=== PATIENT | male | born 1975 | race Caucasian/White ===

== ENCOUNTER 2017-10-09 15:34 | Inpatient (IN) | payer OTHER ==
[2017-10-09 17:25] VITALS: BMI 28.8
--- NOTE | 2017-10-09 18:34 | HP ---
COWS - Scale Resting Pulse: 0= [place] 80 or Below Sweatin= Chills/Flushing Restless Observation: 3= Extraneous Movement Pupil Size: 0= Normal to Room Light Bone or Joint Aches: 2= Severe Diffuse Aches Runny Nose/ Eye Tearin= Runny Nose/Eyes GI Upset > 30mins: 2= Nausea/Diarrhea Tremor Observation: 2= Slight Tremor Visible Yawning Observation: 1= 1-2x During Session Anxiety or Irritability: 2=Irritable/Anxious Goose Flesh Skin: 3=Piloerection COWS Score: 18 Admission ROS S - HPI Chief Complaint: WITHDRAWAL SX Allergies/Adverse Reactions: Allergies Allergy/AdvReac Type Severity Reaction Status Date / Time No Known Allergies Allergy Verified 10/09/17 18:35 History of Present Illness: 41 YEARS OLD MALE WITH LONG HISTORY OF HEROIN NICOTINE DEPENDENCE HAS CHF COPD AND BIPOLAR II IS ADMITTED TO DETOX Exam Limitations: No Limitations - Ebola screening Have you traveled outside of the country in the last 21 days: No Have you had contact with anyone from an Ebola affected area: No Have you been sick,other than usual withdrawal symptoms: No Do you have a fever: No - Review of Systems Constitutional: Changes in sleep, Weight Stable EENT: reports: No Symptoms Reported Respiratory: reports: Cough, SOB with Exertion Cardiac: reports: No Symptoms Reported GI: reports: Diarrhea, Nausea, Poor Fluid Intake, Abdominal cramping : reports: No Symptoms Reported Musculoskeletal: reports: Back Pain, Joint Pain, Muscle Pain, Neck Pain Integumentary: reports: No Symptoms Reported Neuro: reports: Tremors Endocrine: reports: No Symptoms Reported Hematology: reports: No Symptoms Reported Psychiatric: reports: Judgement Intact, Orientated x3, Anxious, Depressed Other Systems: Reviewed and Negative Patient History - Patient Medical History Hx Anemia: No Hx Asthma: Yes Hx Chronic Obstructive Pulmonary Disease (COPD): Yes Hx Cancer: No Hx Cardiac Disorders: No Hx Congestive Heart Failure: No Hx Hypertension: No Hx Hypercholesterolemia: No Hx Pacemaker: No HX Cerebrovascular Accident: No Hx Seizures: No Hx Dementia: No Hx Diabetes: No Hx Gastrointestinal Disorders: No Hx Liver Disease: No Hx Genitourinary Disorders: No Hx Sexually Transmitted Disorders: No Hx Renal Disease (ESRD): No Hx Thyroid Disease: No Hx Human Immunodeficiency Virus (HIV): No Hx Hepatitis C: Yes Hx Depression: No Hx Suicide Attempt: Yes (WHEN SON "YERAS" AGO) Hx Bipolar Disorder: Yes Hx Schizophrenia: No - Patient Surgical History Past Surgical History: Yes Hx Cataract Extraction: Yes (RIGHT EYE05/2017) Anesthesia Reaction: No - PPD History Previous Implant?: Yes Documented Results: Negative w/o proof Implanted On Prior [facility] Admission?: No PPD to be Administered?: Yes - Smoking Cessation Smoking history: Current every day smoker Have you smoked in the past 12 months: Yes Aproximately how many cigarettes per day: 20 Cigars Per Day: 0 Hx Chewing Tobacco Use: No Initiated information on smoking cessation: Yes 'Breaking Loose' booklet given: 10/09/17 - Substance & Tx. History Hx Alcohol Use: No Substance Use Type: Cocaine, Heroin, Opiates Hx Substance Use Treatment: Yes (2013) - Substances Abused Heroin Route: Inhalation Frequency: Daily Amount used: 4 BAGS Age of first use: 18 Date of Last Use: 10/08/17 Cocaine Route: Inhalation Frequency: Daily Amount used: 40$ Age of first use: 19 Date of Last Use: 10/08/17 Family Disease History - Family Disease History Family Disease History: Respiratory: Mother (), Other: Father (/ KILLED), Mother Admission Physical Exam S - Vital Signs Vital Signs: Vital Signs - 24 hr 10/09/17 17:21 Temperature 97.6 F Pulse Rate 59 L Respiratory 18 Rate Blood Pressure 109/70 - Physical General Appearance: Yes: Appropriately Dressed, Moderate Distress, Tremorous, Irritable, Sweating, Anxious HEENTM: Yes: Hearing grossly Normal, Normal ENT Inspection, Normocephalic, Normal Voice Respiratory: Yes: Chest Non-Tender, No Respiratory Distress, No Accessory Muscle Use, Rhonchi, Hyperresonant Neck: Yes: Supple, Trachea in good position Breast: Yes: Breasts Symetrical Cardiology: Yes: Regular Rhythm, S1, S2, Bradycardia Abdominal: Yes: Non Tender, Soft, Increased Bowel Sounds Genitourinary: Yes: Within Normal Limits Back: Yes: Normal Inspection Musculoskeletal: Yes: full range of Motion, Gait Steady, Back pain, Muscle Pain Extremities: Yes: Normal Inspection, Normal Range of Motion, Non-Tender, Tremors Neurological: Yes: Fully Oriented, Alert, Motor Strength 5/5, Normal Response, Depressed Affect Integumentary: Yes: Warm Lymphatic: Yes: Within Normal Limits - Diagnostic (1) Opioid dependence with withdrawal Current Visit: Yes Status: Acute (2) Cocaine dependence, uncomplicated Current Visit: Yes Status: Chronic (3) Nicotine dependence Current Visit: Yes Status: Acute Qualifiers: Nicotine product type: cigarettes Substance use status: in withdrawal Qualified Code(s): F17.213 - Nicotine dependence, cigarettes, with withdrawal (4) Glaucoma (increased eye pressure) Current Visit: Yes Status: Chronic Qualifiers: Glaucoma type: with increased episcleral venous pressure Laterality: bilateral Qualified Code(s): H40.813 - Glaucoma with increased episcleral venous pressure, bilateral (5) Cataract (lens) fragments in eye following cataract surgery Current Visit: Yes Status: Chronic Comment: RIGHT EYE (6) Bipolar II disorder Current Visit: Yes Status: Suspected (7) Pulmonary edema Current Visit: Yes Status: Ruled-out Qualifiers: Chronicity: chronic Qualified Code(s): J81.1 - Chronic pulmonary edema Cleared for Admission S - Detox or Rehab [facility] Level of Care: Medically Managed Detox Regimen/Protocol: Methadone [facility] Breath Alcohol Content Breath Alcohol Content: 0 Urine Drug Screen - Results Drug Screen Negative: No Urine Drug Screen Results: IAN-Cocaine, OPI-Opiates, MTD-Methadone, OXY- Oxycodone
[2017-10-09] MEDS ORDERED: P-EPHED 60MG/TRIPROLIDI 2.5MG TABLET PO PRN (18:57)
[2017-10-09] MEDS ORDERED: LOPERAMIDE HCL 2 MG CAPSULE PO PRN (18:57)
[2017-10-09] MEDS ORDERED: IBUPROFEN 400 MG TABLET (FP) PO PRN (18:57)
[2017-10-09] MEDS ORDERED: MENTHOL/PHENOL 1 EACH UD MM PRN (18:57)
[2017-10-09] MEDS ORDERED: MAG HYDROX/AL HYDROX/SIMETH 30 ML UNIT-DOSE CUP PO PRN (18:57)
[2017-10-09] MEDS ORDERED: MAGNESIUM HYDROX 2400MG/30ML ORAL SUSPENSION 30 ML CUP PO PRN (18:57)
[2017-10-09] MEDS ORDERED: MAGNESIUM CITRATE 300 ML BOTTLE PO PRN (18:57)
[2017-10-09] MEDS ORDERED: guaiFENesin/D-METHORPHAN HB 10 ML UNIT-DOSE CUPS PO PRN (18:57)
[2017-10-09] MEDS ORDERED: NICOTINE POLACRILEX 4 MG GUM BC PRN (18:57)
[2017-10-09] MEDS ORDERED: METHADONE HCL 10 MG TABLET (FOR DETOX USE ONLY) PO ONE ×2 (18:57→23:00)
[2017-10-09] MEDS ORDERED: ACETAMINOPHEN 325 MG TABLET (FP) PO PRN (18:57)
[2017-10-09] MEDS ORDERED: ALBUTEROL SO4 18 GM HFA INHALER IH PRN (19:07)
[2017-10-09] MEDS ORDERED: ALBUTEROL SO4 0.083% IH SOL 2.5 MG/3 ML VIAL.NEB. NEB PRN (19:14)
[2017-10-09] MEDS ORDERED: PATIENT'S OWN MEDICATION (NON-FORMULARY) (Dorzolamide Hcl/Timolol Maleat [Cosopt Eye Drops OP SCH (22:00)
[2017-10-09] MEDS: diazePAM 5 MG TABLET PO PRN (22:50)
[2017-10-09] MEDS: THIAMINE HCL 100 MG TABLET (FP) PO SCH (22:50)
[2017-10-09] MEDS: TIMOLOL 0.5% OPHTHALMIC SOL 5 ML BOTTLE OU SCH (22:52)
[2017-10-09] MEDS: prednisoLONE ACETATE 1% OPHTH SUSP 5 ML BOTTLE OU SCH (22:52)
[2017-10-09] MEDS: DORZOLAMIDE 2% HCL OPHTHALMIC SOLUTION 10 ML BOTTLE OU SCH (22:53)
[2017-10-10 00:21] LABS: URINE APPEARANCE CLEAR; URINE BILIRUBIN NEGATIVE (NEGATIVE); URINE BLOOD NEGATIVE (NEGATIVE); URINE COLOR YELLOW; URINE GLUCOSE (UA) NEGATIVE (NEGATIVE); URINE KETONE NEGATIVE (NEGATIVE); URINE LEUK ESTERASE NEGATIVE (NEGATIVE); URINE NITRITE NEGATIVE (NEGATIVE); URINE PROTEIN NEGATIVE (NEGATIVE)
--- NOTE | 2017-10-10 07:50 | CONSULT ---
[facility] Psychiatric Consult - Data Date of interview: 10/10/17 Admission source: [facility] Identifying data: This is 41 years old male with no psychiatric hospiotalization history intoxicated with: Cocaien, Heroin and Nicotine Substance Abuse History: - Smoking Cessation. Smoking history: Current every day smoker. Have you smoked in the past 12 months: Yes. Aproximately how many cigarettes per day: 20. Cigars Per Day: 0. Hx Chewing Tobacco Use: No. Initiated information on smoking cessation: Yes. 'Breaking Loose' booklet given : 10/09/17. - Substance & Tx. History. Hx Alcohol Use: No. Substance Use Type : Cocaine, Heroin, Opiates. Hx Substance Use Treatment: Yes (2013). - Substances Abused. Heroin. Route: Inhalation. Frequency: Daily. Amount used: 4 BAGS. Age of first use: 18. Date of Last Use: 10/08/17. Cocaine. Route: Inhalation. Frequency: Daily. Amount used: 40$. Age of first use: 19. Date of Last Use: 10/08/17 Medical History: Gkaucoma history, Cataract history, Pulmonary edema histotry Psychiatric History: Patient reprots history of Bipola II Disorder, reports no psychiatrioc hospitalizatiom history, no medications taking prior to admission Physical/Sexual Abuse/Trauma History: Denies Additional Comment: Observation. Detox Unit Care Protocol Mental Status Exam - Mental Status Exam Alert and Oriented to: Person Cognitive Function: Fair Patient Appearance: Unkempt Mood: Sad Affect: Flat Patient Behavior: Sedated Speech Pattern: Appropriate, Delayed Voice Loudness: Mildly Soft/Quiet Thought Process: Circumstantial Thought Disorder: Being Controlled Hallucinations: Denies Suicidal Ideation: Denies Homicidal Ideation: Denies Insight/Judgement: Fair Sleep: Difficulty falling asleep Appetite: Weight loss Muscle strength/Tone: Mild Hypotonicity Gait/Station: Shuffling Additional Comments: Observation. Detox Unit Care Protocol Psychiatric Findings - Problem List ([place] 1, 2,3) (1) Drug-induced mood disorder Current Visit: Yes Status: Acute (2) Nicotine dependence Current Visit: Yes Status: Acute Qualifiers: Nicotine product type: cigarettes Substance use status: in withdrawal Qualified Code(s): F17.213 - Nicotine dependence, cigarettes, with withdrawal (3) Opioid dependence with withdrawal Current Visit: Yes Status: Acute (4) Cocaine dependence, uncomplicated Current Visit: Yes Status: Chronic (5) Bipolar II disorder Current Visit: Yes Status: Suspected - Initial Treatment Plan Initial Treatment Plan: Observation. Detox Unit Care Protocol
--- NOTE | 2017-10-10 09:13 | EKG ---
Test Reason : Blood Pressure : / mmHG Vent. Rate : 058 BPM Atrial Rate : 058 BPM P-R Int : 152 ms QRS Dur : 112 ms QT Int : 408 ms P-R-T Axes : 044 071 044 degrees QTc Int : 400 ms SINUS BRADYCARDIA OTHERWISE NORMAL ECG NO PREVIOUS ECGS AVAILABLE Confirmed by MARY GUSTAFSON, CEDRICK ([id number]) on 10/10/2017 9:13:00 AM Referred By: Confirmed By:CEDRICK HERNANDEZ MD
[2017-10-10 10:00] LABS: HEMATOCRIT 39.9 % (35.4-49); MCH 29.8 pg (25.7-33.7); MCHC 32.7 g/dl (32.0-35.9); MEAN CELL VOLUME 91.1 fl (80-96); MEAN PLT VOLUME 8.1 fl (7.5-11.1); PLATELET COUNT 186 K/MM3 (134-434); RBC 4.38 M/mm3 (4.00-5.60); RDW 14.4 % (11.9-15.9); WHITE BLOOD COUNT 6.3 K/mm3 (4.0-10.0)
[2017-10-10] MEDS ORDERED: METHADONE HCL 10 MG TABLET (FOR DETOX USE ONLY) PO ONE (10:00)
[2017-10-10 10:09] LABS: CHLORIDE 106 mmol/L (98-107); POTASSIUM 3.6 mmol/L (3.5-5.1); SODIUM 140 mmol/L (136-145)
[2017-10-10] MEDS: PRENATAL VITAMINS W/ FOLIC ACID TABLET (FP) PO SCH (10:17)
[2017-10-10] MEDS: diazePAM 5 MG TABLET PO PRN ×3 (10:17→22:43)
[2017-10-10] MEDS: NICOTINE 21 MG/24 HOURS TOPICAL PATCH TD SCH (10:18)
[2017-10-10] MEDS: TIMOLOL 0.5% OPHTHALMIC SOL 5 ML BOTTLE OU SCH ×2 (10:20→22:44)
[2017-10-10] MEDS: prednisoLONE ACETATE 1% OPHTH SUSP 5 ML BOTTLE OU SCH ×4 (10:20→22:45)
[2017-10-10] MEDS: DORZOLAMIDE 2% HCL OPHTHALMIC SOLUTION 10 ML BOTTLE OU SCH ×2 (10:20→22:44)
[2017-10-10 10:40] LABS: ALBUMIN 3.4 g/dl (3.4-5.0); ALK PHOS 57 U/L (45-117); ANION GAP 5 (8-16); BILIRUBIN,TOTAL 0.4 mg/dL (0.2-1.0); BLOOD UREA NITROGEN 13 mg/dL (7-18); CALCIUM 8.2 mg/dL (8.5-10.1); CO2 29 mmol/L (21-32); CREATININE 0.7 mg/dL (0.7-1.3); GLUCOSE,RANDOM 98 mg/dL (74-106); SGOT/AST 14 U/L (15-37); SGPT/ALT 22 U/L (12-78); TOT PROT 6.4 g/dl (6.4-8.2)
--- NOTE | 2017-10-10 11:27 | PN ---
S COWS - Scale Resting Pulse: 0= [place] 80 or Below Sweatin=Flushed/Facial Moisture Restless Observation: 1= Difficult to Sit Still Pupil Size: 0= Normal to Room Light Bone or Joint Aches: 2= Severe Diffuse Aches Runny Nose/ Eye Tearin= Runny Nose/Eyes GI Upset > 30mins: 2= Nausea/Diarrhea Tremor Observation of Outstretched Hands: 2= Slight Tremor Visible Yawning Observation: 2= >3x During Session Anxiety or Irritability: 2=Irritable/Anxious Goose Flesh Skin: 3=Piloerection COWS Score: 18 BHS Progress Note (SOAP) Subjective: shakes sweats agitation body aches irritable interrupted sleep tired Objective: 10/10/17 11:34 Vital Signs Temperature 98.2 F 10/10/17 10:11 Pulse Rate 59 L 10/10/17 10:11 Respiratory Rate 18 10/10/17 10:11 Blood Pressure 96/70 10/10/17 10:11 O2 Sat by Pulse Oximetry (%) Laboratory Tests 10/09/17 10/10/17 10/10/17 20:42 07:00 07:00 WBC 6.3 RBC 4.38 Hgb 13.0 Hct 39.9 MCV 91.1 MCH 29.8 MCHC 32.7 RDW 14.4 Plt Count 186 MPV 8.1 Sodium 140 Potassium 3.6 Chloride 106 Carbon Dioxide 29 Anion Gap 5 L BUN 13 Creatinine 0.7 Creat Clearance w eGFR > 60 Random Glucose 98 Calcium 8.2 L Total Bilirubin 0.4 AST 14 L ALT 22 Alkaline Phosphatase 57 Total Protein 6.4 Albumin 3.4 Urine Color Yellow Urine Appearance Clear Urine pH 6.0 Ur Specific [place] 1.028 Urine Protein Negative Urine Glucose (UA) Negative Urine Ketones Negative Urine Blood Negative Urine Nitrite Negative Urine Bilirubin Negative Urine Urobilinogen 2.0 Ur Leukocyte Esterase Negative aaox3 ambulating no acute distress Assessment: 10/10/17 11:35 withdrawal sx Plan: continue detox increase fluids
[2017-10-10] MEDS: THIAMINE HCL 100 MG TABLET (FP) PO SCH (22:43)
[2017-10-11] MEDS ORDERED: METHADONE HCL 5 MG TABLET (FOR DETOX USE ONLY) PO ONE (10:00)
[2017-10-11] MEDS: TIMOLOL 0.5% OPHTHALMIC SOL 5 ML BOTTLE OU SCH ×2 (10:04→22:23)
[2017-10-11] MEDS: PRENATAL VITAMINS W/ FOLIC ACID TABLET (FP) PO SCH (10:04)
[2017-10-11] MEDS: NICOTINE 21 MG/24 HOURS TOPICAL PATCH TD SCH (10:05)
[2017-10-11] MEDS: DORZOLAMIDE 2% HCL OPHTHALMIC SOLUTION 10 ML BOTTLE OU SCH ×2 (10:06→22:23)
[2017-10-11] MEDS: prednisoLONE ACETATE 1% OPHTH SUSP 5 ML BOTTLE OU SCH ×4 (10:06→22:23)
--- NOTE | 2017-10-11 12:46 | PN ---
[facility] COWS - Scale Resting Pulse: 0= [place] 80 or Below Sweatin=Flushed/Facial Moisture Restless Observation: 1= Difficult to Sit Still Pupil Size: 0= Normal to Room Light Bone or Joint Aches: 2= Severe Diffuse Aches Runny Nose/ Eye Tearin= Nasal Congestion GI Upset > 30mins: 1= Stomach Cramp Tremor Observation of Outstretched Hands: 2= Slight Tremor Visible Yawning Observation: 2= >3x During Session Anxiety or Irritability: 2=Irritable/Anxious Goose Flesh Skin: 0=Smooth Skin COWS Score: 13 BHS Progress Note (SOAP) Subjective: interrupted sleep needs to see psych agitation anxiety sweats shakes Objective: 10/11/17 12:45 Vital Signs Temperature 98.0 F 10/11/17 10:38 Pulse Rate 71 10/11/17 10:38 Respiratory Rate 18 10/11/17 10:38 Blood Pressure 131/50 10/11/17 10:38 O2 Sat by Pulse Oximetry (%) Laboratory Tests 10/09/17 10/10/17 10/10/17 20:42 06:00 07:00 WBC 6.3 RBC 4.38 Hgb 13.0 Hct 39.9 MCV 91.1 MCH 29.8 MCHC 32.7 RDW 14.4 Plt Count 186 MPV 8.1 Sodium Potassium Chloride Carbon Dioxide Anion Gap BUN Creatinine Creat Clearance w eGFR Random Glucose Calcium Total Bilirubin AST ALT Alkaline Phosphatase Total Protein Albumin Urine Color Yellow Urine Appearance Clear Urine pH 6.0 Ur Specific [place] 1.028 Urine Protein Negative Urine Glucose (UA) Negative Urine Ketones Negative Urine Blood Negative Urine Nitrite Negative Urine Bilirubin Negative Urine Urobilinogen 2.0 Ur Leukocyte Esterase Negative RPR Titer HIV 1&2 Antibody Screen Negative HIV P24 Antigen Negative 10/10/17 10/10/17 07:00 07:00 WBC RBC Hgb Hct MCV MCH MCHC RDW Plt Count MPV Sodium 140 Potassium 3.6 Chloride 106 Carbon Dioxide 29 Anion Gap 5 L BUN 13 Creatinine 0.7 Creat Clearance w eGFR > 60 Random Glucose 98 Calcium 8.2 L Total Bilirubin 0.4 AST 14 L ALT 22 Alkaline Phosphatase 57 Total Protein 6.4 Albumin 3.4 Urine Color Urine Appearance Urine pH Ur Specific [place] Urine Protein Urine Glucose (UA) Urine Ketones Urine Blood Urine Nitrite Urine Bilirubin Urine Urobilinogen Ur Leukocyte Esterase RPR Titer Nonreactive HIV 1&2 Antibody Screen HIV P24 Antigen aaox3 ambulating no acute distress Assessment: 10/11/17 12:45 withdrawal sx Plan: continue detox increase fluids psych ordered for insomnia
--- NOTE | 2017-10-11 14:41 | PN ---
Psychiatric Progress Note Vital Signs: Vital Signs Period Temp Pulse Resp BP Sys/Desai Pulse Ox Last 24 Hr 98.0 F-98.6 F 45-130 18-18 98-131/50-82 Date of Session: 10/27/17 Chief Complaint:: "I'm having trouble sleeping." HPI: Pt. is a 41 year old patient with a h/o cocaine and heroin dependence. ROS: Unremarkable. Current Medications: Active Medications Generic Name Dose Route Start Last Admin Trade Name Freq PRN Reason Stop Dose Admin Acetaminophen 650 mg 10/09/17 18:57 Tylenol - PO Q4H PRN FEVER Al Hydroxide/Mg Hydroxide 30 ml 10/09/17 18:57 Mylanta Oral Suspension - PO Q6H PRN DYSPEPSIA Albuterol Sulfate 2 puff 10/09/17 19:07 Ventolin Hfa Inhaler - IH Q4H PRN ASTHMA Albuterol Sulfate 1 amp 10/09/17 19:14 Ventolin 0.083% Nebulizer Soln - NEB Q6H PRN SHORT OF BREATH/WHEEZING Diazepam 10 mg 10/09/17 18:57 10/10/17 22:43 Valium - PO 10/12/17 18:56 10 mg Q4H PRN Administration WITHDRAWAL(CONT SUBST) Dorzolamide HCl 1 drop 10/09/17 22:00 10/11/17 10:06 Trusopt 2% OU 1 drop BID REJI Administration Eucalyptus/Menthol/Phenol/Sorbitol 1 each 10/09/17 18:57 Cepastat Lozenge - MM Q4H PRN SORE THROAT Guaifenesin 10 ml 10/09/17 18:57 Robitussin Dm - PO Q6H PRN COUGH Ibuprofen 400 mg 10/09/17 18:57 Motrin - PO Q6H PRN PAIN LEVEL 4-6 Loperamide HCl 4 mg 10/09/17 18:57 Imodium - PO Q6H PRN DIARRHEA Magnesium Citrate 300 ml 10/09/17 18:57 Citroma - PO Q48H PRN CONSTIPATION Magnesium Hydroxide 30 ml 10/09/17 18:57 Milk Of Magnesia - PO DAILY PRN CONSTIPATION Methadone HCl 5 mg 10/14/17 06:00 Dolophine - PO 10/14/17 06:01 ONCE@0600 ONE Methadone HCl 15 mg 10/12/17 10:00 Dolophine - PO 10/12/17 10:01 ONCE ONE Methadone HCl 10 mg 10/13/17 10:00 Dolophine - PO 10/13/17 10:01 ONCE ONE Nicotine 21 mg 10/10/17 10:00 10/11/17 10:05 Nicoderm Patch - TD Not Given DAILY REJI Nicotine Polacrilex 4 mg 10/09/17 18:57 Nicorette Gum - BC Q2H PRN NICOTINE REPLACEMENT RX Prednisolone Acetate 1 drop 10/09/17 22:00 10/11/17 13:54 Pred Forte 1% - OU 1 drop QID REJI Administration Multivit/Folic Acid/Iron 1 tab 10/10/17 10:00 10/11/17 10:04 Vitamins ([facility]) - PO 1 tab DAILY REJI Administration Pseudoephedrine/Triprolidine 1 combo 10/09/17 18:57 Actifed - PO TID PRN NASAL CONGESTION Thiamine HCl 100 mg 10/09/17 22:00 10/10/17 22:43 Vitamin B1 - PO 100 mg HS REJI Administration Timolol Maleate 1 drop 10/09/17 22:00 10/11/17 10:04 Timoptic 0.5% OU 1 drop BID REJI Administration Medication(s) Change(s): Yes. Will add seroquel 50mg for insomnia. Current Side Effect: No Lab tests ordered: No Lab tests reviewed: Yes Provider note:: Pt. approached patient in reference to his request for the psychiatric reconsultation. Pt. requesting a sleep aid during his stay at [facility]. Pt. reports taking trazodone and seroquel in the past. Pharmacy claims reviewed. Pt. agreeable to taking seroquel 50mg qhs for insomnia. Benefits and side effects discussed. Will continue to monitor patient. Total face to face time:: 25 Mental Status Exam - Mental Status Exam Alert and Oriented to: Time, Place, Person Cognitive Function: Good Patient Appearance: Unkempt Mood: Withdrawn Affect: Normal Range Patient Behavior: Cooperative Speech Pattern: Appropriate Voice Loudness: Normal Thought Process: Goal Oriented Thought Disorder: Not Present Hallucinations: Denies Suicidal Ideation: Denies Homicidal Ideation: Denies Insight/Judgement: Poor Sleep: Poorly Appetite: Fair Muscle strength/Tone: Normal Gait/Station: Normal Psychiatric Treatment Plan - Problem List (1) Cocaine dependence, uncomplicated Current Visit: Yes (2) Drug-induced mood disorder Current Visit: Yes (3) Nicotine dependence Current Visit: Yes Qualifiers: Nicotine product type: cigarettes Substance use status: uncomplicated Qualified Code(s): F17.210 - Nicotine dependence, cigarettes, uncomplicated (4) Opioid dependence with withdrawal Current Visit: Yes (5) Bipolar II disorder Current Visit: Yes
[2017-10-11] MEDS: THIAMINE HCL 100 MG TABLET (FP) PO SCH (22:23)
[2017-10-11] MEDS: diazePAM 5 MG TABLET PO PRN (22:25)
[2017-10-12] MEDS ORDERED: METHADONE HCL 5 MG TABLET (FOR DETOX USE ONLY) PO ONE (10:00)
[2017-10-12] MEDS: DORZOLAMIDE 2% HCL OPHTHALMIC SOLUTION 10 ML BOTTLE OU SCH ×2 (10:16→22:19)
[2017-10-12] MEDS: prednisoLONE ACETATE 1% OPHTH SUSP 5 ML BOTTLE OU SCH ×4 (10:16→22:20)
[2017-10-12] MEDS: PRENATAL VITAMINS W/ FOLIC ACID TABLET (FP) PO SCH (10:17)
[2017-10-12] MEDS: NICOTINE 21 MG/24 HOURS TOPICAL PATCH TD SCH (10:17)
[2017-10-12] MEDS: TIMOLOL 0.5% OPHTHALMIC SOL 5 ML BOTTLE OU SCH ×2 (10:18→22:19)
--- NOTE | 2017-10-12 12:26 | PN ---
S Progress Note (SOAP) Subjective: nausea vomiting sleep disturbance Objective: 10/12/17 12:25 Vital Signs Temperature 99.5 F 10/12/17 10:35 Pulse Rate 88 10/12/17 10:35 Respiratory Rate 18 10/12/17 10:35 Blood Pressure 109/72 10/12/17 10:35 O2 Sat by Pulse Oximetry (%) Laboratory Last Values WBC 6.3 K/mm3 (4.0-10.0) 10/10/17 07:00 RBC 4.38 M/mm3 (4.00-5.60) 10/10/17 07:00 Hgb 13.0 GM/dL (11.7-16.9) 10/10/17 07:00 Hct 39.9 % (35.4-49) 10/10/17 07:00 MCV 91.1 fl (80-96) 10/10/17 07:00 MCH 29.8 pg (25.7-33.7) 10/10/17 07:00 MCHC 32.7 g/dl (32.0-35.9) 10/10/17 07:00 RDW 14.4 % (11.9-15.9) 10/10/17 07:00 Plt Count 186 K/MM3 (134-434) 10/10/17 07:00 MPV 8.1 fl (7.5-11.1) 10/10/17 07:00 Sodium 140 mmol/L (136-145) 10/10/17 07:00 Potassium 3.6 mmol/L (3.5-5.1) 10/10/17 07:00 Chloride 106 mmol/L (98-107) 10/10/17 07:00 Carbon Dioxide 29 mmol/L (21-32) 10/10/17 07:00 Anion Gap 5 (8-16) L 10/10/17 07:00 BUN 13 mg/dL (7-18) 10/10/17 07:00 Creatinine 0.7 mg/dL (0.7-1.3) 10/10/17 07:00 Creat Clearance w eGFR > 60 (>60) 10/10/17 07:00 Random Glucose 98 mg/dL (74-106) 10/10/17 07:00 Calcium 8.2 mg/dL (8.5-10.1) L 10/10/17 07:00 Total Bilirubin 0.4 mg/dL (0.2-1.0) 10/10/17 07:00 AST 14 U/L (15-37) L 10/10/17 07:00 ALT 22 U/L (12-78) 10/10/17 07:00 Alkaline Phosphatase 57 U/L (45-117) 10/10/17 07:00 Total Protein 6.4 g/dl (6.4-8.2) 10/10/17 07:00 Albumin 3.4 g/dl (3.4-5.0) 10/10/17 07:00 Urine Color Yellow 10/09/17 20:42 Urine Appearance Clear 10/09/17 20:42 Urine pH 6.0 (5.0-8.0) 10/09/17 20:42 Ur Specific [place] 1.028 (1.001-1.035) 10/09/17 20:42 Urine Protein Negative (NEGATIVE) 10/09/17 20:42 Urine Glucose (UA) Negative (NEGATIVE) 10/09/17 20:42 Urine Ketones Negative (NEGATIVE) 10/09/17 20:42 Urine Blood Negative (NEGATIVE) 10/09/17 20:42 Urine Nitrite Negative (NEGATIVE) 10/09/17 20:42 Urine Bilirubin Negative (NEGATIVE) 10/09/17 20:42 Urine Urobilinogen 2.0 mg/dL (0.2-1.0) 10/09/17 20:42 Ur Leukocyte Esterase Negative (NEGATIVE) 10/09/17 20:42 RPR Titer Nonreactive (NONREACTIVE) 10/10/17 07:00 HIV 1&2 Antibody Screen Negative 10/10/17 06:00 HIV P24 Antigen Negative 10/10/17 06:00 labs noted Assessment: 10/12/17 12:25 withdrawal sx no acute distress noted Plan: continue detox
[2017-10-12] MEDS: diazePAM 5 MG TABLET PO PRN (17:48)
[2017-10-12] MEDS ORDERED: hydrOXYzine PAMOATE 50 MG CAPSULE (FP) PO PRN (20:58)
[2017-10-12] MEDS: THIAMINE HCL 100 MG TABLET (FP) PO SCH (22:19)
[2017-10-13 06:37] VITALS: BP 114/66; PULSE 50; TEMP 97.9
[2017-10-13] MEDS ORDERED: METHADONE HCL 10 MG TABLET (FOR DETOX USE ONLY) PO ONE (10:00)
--- NOTE | 2017-10-13 10:08 | DS ---
[facility] Detox Discharge Summary Admission Date: 10/09/17 Discharge Date: 10/13/17 - History Present History: Opioid Dependence - Physical Exam Results Vital Signs: Vital Signs Temperature 97.9 F 10/13/17 06:36 Pulse Rate 50 L 10/13/17 06:36 Respiratory Rate 18 10/13/17 06:36 Blood Pressure 114/66 10/13/17 06:36 O2 Sat by Pulse Oximetry (%) Pertinent Admission Physical Exam Findings: withdrawal sx Vital Signs Temperature 97.9 F 10/13/17 06:36 Pulse Rate 50 L 10/13/17 06:36 Respiratory Rate 18 10/13/17 06:36 Blood Pressure 114/66 10/13/17 06:36 O2 Sat by Pulse Oximetry (%) Laboratory Last Values WBC 6.3 K/mm3 (4.0-10.0) 10/10/17 07:00 RBC 4.38 M/mm3 (4.00-5.60) 10/10/17 07:00 Hgb 13.0 GM/dL (11.7-16.9) 10/10/17 07:00 Hct 39.9 % (35.4-49) 10/10/17 07:00 MCV 91.1 fl (80-96) 10/10/17 07:00 MCH 29.8 pg (25.7-33.7) 10/10/17 07:00 MCHC 32.7 g/dl (32.0-35.9) 10/10/17 07:00 RDW 14.4 % (11.9-15.9) 10/10/17 07:00 Plt Count 186 K/MM3 (134-434) 10/10/17 07:00 MPV 8.1 fl (7.5-11.1) 10/10/17 07:00 Sodium 140 mmol/L (136-145) 10/10/17 07:00 Potassium 3.6 mmol/L (3.5-5.1) 10/10/17 07:00 Chloride 106 mmol/L (98-107) 10/10/17 07:00 Carbon Dioxide 29 mmol/L (21-32) 10/10/17 07:00 Anion Gap 5 (8-16) L 10/10/17 07:00 BUN 13 mg/dL (7-18) 10/10/17 07:00 Creatinine 0.7 mg/dL (0.7-1.3) 10/10/17 07:00 Creat Clearance w eGFR > 60 (>60) 10/10/17 07:00 Random Glucose 98 mg/dL (74-106) 10/10/17 07:00 Calcium 8.2 mg/dL (8.5-10.1) L 10/10/17 07:00 Total Bilirubin 0.4 mg/dL (0.2-1.0) 10/10/17 07:00 AST 14 U/L (15-37) L 10/10/17 07:00 ALT 22 U/L (12-78) 10/10/17 07:00 Alkaline Phosphatase 57 U/L (45-117) 10/10/17 07:00 Total Protein 6.4 g/dl (6.4-8.2) 10/10/17 07:00 Albumin 3.4 g/dl (3.4-5.0) 10/10/17 07:00 Urine Color Yellow 10/09/17 20:42 Urine Appearance Clear 10/09/17 20:42 Urine pH 6.0 (5.0-8.0) 10/09/17 20:42 Ur Specific [place] 1.028 (1.001-1.035) 10/09/17 20:42 Urine Protein Negative (NEGATIVE) 10/09/17 20:42 Urine Glucose (UA) Negative (NEGATIVE) 10/09/17 20:42 Urine Ketones Negative (NEGATIVE) 10/09/17 20:42 Urine Blood Negative (NEGATIVE) 10/09/17 20:42 Urine Nitrite Negative (NEGATIVE) 10/09/17 20:42 Urine Bilirubin Negative (NEGATIVE) 10/09/17 20:42 Urine Urobilinogen 2.0 mg/dL (0.2-1.0) 10/09/17 20:42 Ur Leukocyte Esterase Negative (NEGATIVE) 10/09/17 20:42 RPR Titer Nonreactive (NONREACTIVE) 10/10/17 07:00 HIV 1&2 Antibody Screen Negative 10/10/17 06:00 HIV P24 Antigen Negative 10/10/17 06:00 lab noted - Treatment Hospital Course: Detox Protocol Followed, Responded well Patient has Accepted a Rehab Referral to: as per counselor arranged - Medication Discharge Medications: Ambulatory Orders Albuterol Sulfate Inhaler - [Ventolin Hfa Inhaler -] 2 inh PO Q4H PRN 10/09/17 Dorzolamide HCl/Timolol Maleat [Cosopt Eye Drops] 1 drop OP BID 10/09/17 Prednisolone 1% Ophthalmic [Pred Forte 1% -] 15 ml OP QID 10/09/17 - Diagnosis (1) Opioid dependence with withdrawal Current Visit: Yes Status: Acute (2) Cocaine dependence, uncomplicated Current Visit: Yes Status: Chronic (3) Nicotine dependence Current Visit: Yes Status: Acute Qualifiers: Nicotine product type: cigarettes Substance use status: in withdrawal Qualified Code(s): F17.213 - Nicotine dependence, cigarettes, with withdrawal (4) Glaucoma (increased eye pressure) Current Visit: Yes Status: Chronic Qualifiers: Glaucoma type: with increased episcleral venous pressure Laterality: bilateral Qualified Code(s): H40.813 - Glaucoma with increased episcleral venous pressure, bilateral (5) Cataract (lens) fragments in eye following cataract surgery Current Visit: Yes Status: Chronic (6) Bipolar II disorder Current Visit: Yes Status: Suspected (7) Pulmonary edema Current Visit: Yes Status: Ruled-out Qualifiers: Chronicity: chronic Qualified Code(s): J81.1 - Chronic pulmonary edema - AMA Did Patient Leave Against Medical Advice: Yes
[2017-10-14] MEDS ORDERED: METHADONE HCL 5 MG TABLET (FOR DETOX USE ONLY) PO ONE (06:00)
== END 2017-10-13 09:30 | disposition left against medical advice (07) | DRG 770 ==
LOC: YASAS 15:34 → Y6N 19:08
PROVIDERS: ADMIT Internal Medicine; ATTEND Internal Medicine
PROC: HZ2ZZZZ Detoxification Services for Substance Abuse Treatment (ICD-10-PCS; principal; 2017-10-09)
DX: F11.23 Opioid dependence with withdrawal (principal); F14.20 Cocaine dependence, uncomplicated; F17.210 Nicotine dependence, cigarettes, uncomplicated; F31.81 Bipolar II disorder; J81.1 Chronic pulmonary edema; H40.813 Glaucoma with increased episcleral venous pressure, bilateral; H59.89 Other postprocedural complications and disorders of eye and adnexa, not elsewhere classified
CPT/HCPCS: 36415; 71046-TC; 80053; 81003; 85027; 86593; 87389; 93005; 93010